=== PATIENT | male | born 1995 | race Caucasian/White ===

== ENCOUNTER → 2018-12-12 14:12 | Outpatient (CLI) | payer OTHER, SELFPAY ==
[2018-12-12 14:56] LABS: D-Dimer Quantitative (DVT/PE) 0.75 FEU/ug/m (0.27-0.49)
== END ==
PROVIDERS: Family Provider Family Medicine; PCP Family Medicine; Referring Provider Family Medicine; Visit Provider Family Medicine
DX: R06.02 Shortness of breath (principal); R07.9 Chest pain, unspecified
CPT/HCPCS: 85379

== ENCOUNTER 2018-12-12 14:50 | Inpatient (IN) | payer OTHER, SELFPAY ==
[2018-12-12] VITALS (19 sets, daily range): BP systolic 118–137; BP diastolic 61–84; PULSE 71–100; RESP 12–19; TEMP 36.7–37.6; O2SAT 98–100; BMI 23.2; BMI 22.6; BMI 22.7
--- NOTE | 2018-12-12 15:47 | CT_ITS ---
STUDY: CT ABDOMEN AND PELVIS WITH CONTRAST REASON FOR EXAM: Male, 23 years old. Weight loss RADIATION DOSAGE (If Supplied By Facility): DLP = ( 383.61 ) mGycm TECHNIQUE: Transaxial images were obtained from the dome of the diaphragm to the symphysis pubis without oral contrast. 100CC ml of Isovue 300 contrast was administered. Sagittal and coronal images were reconstructed. Individualized dose optimization techniques were used for this CT. COMPARISON: None. FINDINGS: The visualized lung bases are clear. The visualized portions of the heart and pericardium are within normal limits. There are no calcified gallstones present. The liver is within normal limits. There are no suspicious hepatic lesions. The spleen is normal in size. The pancreas is within normal limits. The adrenal glands are within normal limits. There are no obstructing renal stones. There is no hydronephrosis. There are no focal renal lesions. Normal visualized stomach. There is no bowel obstruction or inflammation. The appendix is not visualized, but there are no findings to suggest acute appendicitis. The aorta is normal in caliber. There is no abdominal or pelvic free air, free fluid, fluid collection or lymphadenopathy. There are no destructive osseous lesions. CT/Abdomen/Pelvis W IV Cont ONLY IMPRESSION: No acute abdominal or pelvic pathology. Electronically Signed: Bradford Cutler, at 17:29 EDT Tel , Service support ,
[2018-12-12] MEDS: 0.9% Normal Saline 1,000 ML 150 ML IV (16:07)
--- NOTE | 2018-12-12 16:12 | ED.DCSUM_ITS ---
- ER Visit Summary Date of Service: 12/12/18 Chief Complaint: Anemia History of Present Illness: The patient is a 23 M with fatigue for the past several months. He reportedly had a URI illness in August fully recovered. He developed diarrhea possibly 5 weeks ago. He states he is going once or twice a day. He does occasionally note blood in it. He reports minimal abdominal pain. Patient does have a history of irritable bowel/colitis. He was last scoped approximately year and a half ago. He was seen by his PCP today and his hemoglobin was measured at 5.4. Stool guaiac in the office is positive. Physical Examination: Vital signs unremarkable. Patient sitting upright in bed no acute distress. Heart is regular rate and rhythm. Lung sounds are clear. Abdomen is soft with no focal tenderness. Hypoactive bowel sounds are noted. Patient does appear pale. Test Results: CBC from the [facility] was reviewed and his hemoglobin is 5.4 with hematocrit 21.4. Platelet count is 237,000. Chemistry studies, LFTs, coags here are unremarkable. CT abdomen pelvis with IV contrast reveals no acute pathology. Emergency Department Course and Treatment: Patient did have positive stool guaiac at his PCPs office. He has been ordered 3 units of blood. I spoke with Dr. Mackey who will be following along with the patient in the hospital. Treatment Plan: [] Disposition: Admit Impression: 1. Anemia 2. GI bleed This note was generated with [employer] dictation software. It may contain incorrect words, spelling, and punctuation that were not noted in review of the chart prior to signing ED Disposition - Plan for ED Patient: Referrals: Von Stewart MD [Primary Care Provider] -
[2018-12-12 16:31] LABS: International Normalized Ratio 1.1; Prothrombin Time (Protime)PT. 13.8 SECONDS (11.7-14.9)
[2018-12-12 16:32] LABS: Partial Thromboplast Time 28.6 Seconds (24.1-36.2)
[2018-12-12 16:38] LABS: Anion Gap 4 (5-15); BUN 9 mg/dL (7-18); BUN/Creat Ratio 9.8 RATIO (10-20); Calcium,Total 8.9 mg/dL (8.5-10.1); Chloride 108 mmol/L (98-107); Creatinine, Serum 0.92 mg/dL (0.70-1.30); EST Glomerular Filtration Rate 107 mL/min (>60); Est Glom Filt Rate - Afr Amer 130 mL/min (>60); Estimated Creatinine Clearance 119.78 ml/min; Glucose 101 mg/dL (74-106); Potassium 3.8 mmol/L (3.5-5.1); Sodium Level 137 mmol/L (136-145)
[2018-12-12 16:46] LABS: AST(SGOT) 21 U/L (15-37); Alanine Aminotransfer ALT/SGPT 18 U/L (16-61); Alkaline Phosphatase 86 U/L (45-117); Bilirubin, Direct 0.11 mg/dL (0.00-0.30); Globulin 4.2 g/dL (2.2-4.2); Protein, Total 8.2 g/dL (6.4-8.2)
--- NOTE | 2018-12-12 18:07 | CASEMGMT ---
RN CM Assessment Introduced role of RN CM to patient and patient mother at bedside.? Patient is alert, oriented and able?to participate in RN CM Assessment. ?Care providers, pharmacy, and demographics verified. Presentation: Fatigue the past several months, Diarrhea x5 weeks 1-2times/day w/occasional blood. Sent from PCP Dr Stewart, +guaiac in office, Hgb 5.4. Admit Dx: Re-Admit: No Barriers/Issues: None PCP: Von Stewart Specialists: GI Preferred Pharmacy: [facility] Insurance: [employer] Rx Benefit: Yes? LNOK: Mother Malka Adams Living Arrangements:?Lives with mother in a 2 story home, patient resides on 2nd ms, 2 steps to enter home. ADL?s: Independent with ambulation and ADL's Transportation: Mother Malka Adams DME: None HHC: None SNF: None Goal: Home, does not anticipate will need anything. Denies questions/concerns. DC PLAN: Home with no anticipated needs identified at this time. Adam Bill RNCM
--- NOTE | 2018-12-12 21:14 | HP.PCM_ITS ---
Problem List (1) Severe anemia Status: Acute (2) History of ulcerative colitis Status: Chronic History of Present Illness Date of Admission: 12/12/18 Chief Complaint: Severe anemia, history of ulcerative colitis The patient is a 23 year old [facility] after being sent in by his PCP due to abnormal labs which were drawn today indicating hemoglobin of 5.4 and positive Hemoccult stool.. Patient's MCV was low at 61. Patient states that he has seen intermittent blood in his stool, he denies seeing any large clots-he states he sees blood on his stool from time to time.. Patient's mother who is in the room with the patient at the time of my examination states that the patient had a colonoscope done approximately 2 years ago which showed ulcerative colitis. Patient initially was treated with enemas but on follow-up visit to the GI doctor, patient was not kept on any medication and he has not had a repeat blood count since 2 years ago and is not been on any medications for his ulcerative colitis in the last 2 years. Patient admits to having intermittent low pelvic abdominal pain. Patient's mother has a history of ulcerative colitis. Lab work was obtained in the emergency room, patient's INR was normal, patient's chemistry profile was unremarkable. Patient's CBC was not repeated. CT of the abdomen and pelvis with IV contrast revealed no acute pathology. Past Medical History Past Medical History (Chronic Problems): Chronic Problems History of ulcerative colitis (Chronic) Allergies milk Allergy (Verified 12/12/18 20:37) Food Allergy sweet potato Allergy (Verified 12/12/18 20:37) Rash amoxicillin Adverse Reaction (Verified 12/12/18 20:29) Other THRUSH Home Medications: Ambulatory Orders Medication Instructions Recorded Albuterol Sulfate [Ventolin Hfa] 2 puff INHALATION Q4H PRN PRN 12/12/18 Cetirizine HCl [Zyrtec] 10 mg PO DAILY 12/12/18 Fluticasone 0.05% [Flonase Nasal 1 spray NASAL BID PRN 12/12/18 [place]] Lansoprazole [Prevacid] 30 mg PO DAILY 12/12/18 Surgical History: no surgical history Psychiatric History: No pertinent psych hx Lives: With Family Smoking Status: Never smoker Tobacco Use: Non-smoker Alcohol: None Drugs: None - *Family History Maternal History Items: - - Ulcerative colitis Paternal History Items: Unknown Review of Systems Constitutional: Reports: Weakness, Fatigue. Denies: Anorexia, Chills, Fever, Night Sweats, Weight Change Eyes: Denies: Blurred vision, Cataracts, Conjunctivae Inflammation, Double vision, Drainage HEENT: Denies: Difficulty Swallowing, Dysphasia, Ear Pain, Eye Pain, Hearing Changes, Nasal bleeding, Nasal Congestion, Post Nasal Drip Cardiovascular: Denies: Chest Pain, Claudication, Chest Pressure, Chest Tightness, Edema, Heaviness, Orthopnea, Palpitations Respiratory: Denies: Cough, Hemoptysis, Pleuritic Pain, Shortness of Breath, Shortness of breath at rest, Shortness of breath upon exertion Gastrointestinal: Reports: Abdominal Pain - Bilateral lower quadrant abdominal pain from time to time, Dyspepsia, Hematochezia. Denies: Constipation, Laurita rrhea, Hematemesis, Nausea, Melena, Vomiting Genitourinary: Denies: Dysuria, Frequency, Hematuria, Hesitancy, Incontinence, Nocturia, Urgency Musculoskeletal: Denies: Back Pain, Foot Pain, Hand Pain, Joint Pain, Joint stiffness, Joint swelling, Joint Tenderness, Leg Pain Skin: Denies: Dryness, Jaundice, Pruritis, Rash Neurological: Denies: Balance problems, Blurred vision, Double vision, Slurred speech, Difficulty swallowing, Focal weakness, Headaches, Incoordination, Numbness, Tingling Psychiatric: Denies: Anxiety, Depression, Homicidal Ideations, Suicidal Ideations Endocrine: Denies: Change in Body Habitus, Heat/ Cold Intolerance, Polydipsia, Polyuria Hematologic/ Lymphatic: Reports: Anemia - Patient has been anemic in the past, it is unknown what his last hemoglobin result was. Denies: Adenopathy, Easy Bruising, Easy Bleeding, Petechiae, Purpura VTE Information - Inpt Only VTE Present on Admission: No VTE Mechan Device Prophylaxis: None VTE Pharm Prophylaxis ordered?: No Reason prophylaxis not ordered:: Treatment Not Indicated Patient Problems: Active and Suspected Problems Severe anemia (Acute) - Physical Exam General: Alert, Oriented x3, Cooperative, No apparent distress, Well developed, Well nourished HEENT: Atraumatic, PERRLA, EOMI, Normocephalic Oral: Moist Mucosa Neck: Supple, No JVD, Negative Carotid Bruits, No Nuchal Rigidity, Trachea Midline, Thyroid Normal Size and Texture Lungs: Clear to auscultation, Normal air movement, No rhonchi, No wheeze, No rales Cardiovascular: Regular rate, Regular Rhythm, Normal S1, Normal S2, No murmurs, No Ectopic Activity, PMI Normal, No rub noted, No Gallop Abdomen: Bowel Sounds Present, Soft, Non Tender, Non-Distended, No hernias noted Extremities: No clubbing, No cyanosis, No edema, Capillary Refill Less than 3 Seconds Skin: No rashes, No breakdown Musculoskeletal: No Tenderness to Palpation of Joints or Extremities, No Muscle Wasting Neurological: Cranial nerves II-XII grossly intact, Neuro grossly intact, Sen mary exam intact to light touch and pain, Coordination normal Psych/Mental Status: Normal Affect, Appropriate, Alert and oriented to time, place, person, mood and affect Vital Signs Temp Pulse Resp BP Pulse Ox 99.5 F H 75 18 125/74 H 100 12/12/18 20:55 12/12/18 20:55 12/12/18 20:55 12/12/18 20:55 12/12/18 20:55 Oxygen Delivery Method Room Air Weight: 67.7 kg Body Mass Index (BMI) 22.6 Intake and Output for Last 24 Hours 12/10/18 12/11/18 12/12/18 23:59 23:59 23:59 Intake Total 400 / 400 Balance 400 / 400 Laboratory Tests Past 24 Hrs 12/12/18 12/12/18 12/12/18 15:34 15:35 15:35 PT 13.8 INR 1.1 APTT 28.6 Sodium Potassium Chloride Carbon Dioxide Anion Gap BUN Creatinine Estim Creat Clear Calc Est GFR (MDRD) Af Amer Est GFR (MDRD) Non-Af BUN/Creatinine Ratio Glucose Calcium Iron TIBC Iron Saturation Total Bilirubin 0.30 Direct Bilirubin 0.11 AST 21 ALT 18 Alkaline Phosphatase 86 Total Protein 8.2 Albumin 4.0 Globulin 4.2 Blood Type O NEGATIVE Antibody Screen NEGATIVE Crossmatch See Detail 12/12/18 12/12/18 15:35 15:35 PT INR APTT Sodium 137 Potassium 3.8 Chloride 108 H Carbon Dioxide 25.0 Anion Gap 4 L BUN 9 Creatinine 0.92 Estim Creat Clear Calc 119.78 Est GFR (MDRD) Af Amer 130 Est GFR (MDRD) Non-Af 107 BUN/Creatinine Ratio 9.8 L Glucose 101 Calcium 8.9 Iron Pending TIBC Pending Iron Saturation Pending Total Bilirubin Direct Bilirubin AST ALT Alkaline Phosphatase Total Protein Albumin Globulin Blood Type Antibody Screen Crossmatch Assessment/Plan All Active Problems Severe anemia (Acute) #1 severe anemia-microcytic in nature-probably iron deficiency from chronic GI bleeding-patient will be admitted to PCU, he will have a total of 4 units of packed red blood cells given, I wrote for IV Venofer tonight #2 past history of ulcerative colitis with Hemoccult positive stools-I feel the patient probably has chronic ulcerative colitis, I will start the patient on mesalamine and IV Solu-Medrol, general surgery has been consulted to see the patient, colonoscopy will be performed on Wednesday of this week. #3 chronic dyspepsia-patient is on PPIs chronically Code Visit Inpatient E&M: 04508 Init Hosp L3
[2018-12-12 21:48] LABS: Iron 11 ug/dL (65-175); Iron Binding Capacity,Total 514 ug/dL (250-450); PERCENT IRON SATURATION 2.1 % (15.0-55.0)
[2018-12-12] MEDS: Pantoprazole Sodium 40 MG Tablet PO (22:19)
[2018-12-12] MEDS: MESALAMINE 400 MG CAPSULE.DR 800 MG PO (22:20)
[2018-12-12] MEDS: MethylPREDNISolone 125 MG/2 ML Vial 60 MG IV (22:21)
[2018-12-13] VITALS (17 sets, daily range): BP systolic 118–131; BP diastolic 62–77; PULSE 55–90; RESP 16–18; TEMP 36.8–37.1; O2SAT 98–100; BMI 22.6
[2018-12-13] MEDS: Acetaminophen 325 MG Tablet 650 MG PO (04:48)
[2018-12-13] MEDS: MethylPREDNISolone 125 MG/2 ML Vial 60 MG IV ×3 (05:14→21:39)
[2018-12-13] MEDS: MESALAMINE 400 MG CAPSULE.DR 800 MG PO ×3 (05:14→21:39)
[2018-12-13] MEDS: 0.9% Normal Saline 1,000 ML 75 ML IV ×2 (05:14→18:25)
[2018-12-13 06:48] LABS: Absolute Lymphocyte Count 0.72 X10^3/ul (0.83-4.51); Basophil# 0.02 X10^3/uL; Basophil% 0.2 % (0-1); Hematocrit 32.7 % (40-54); Hemoglobin 9.7 g/dl (13.0-16.5); Lymphocyte # 0.72 X10^3/ul (4.0); Lymphocyte % 7.3 % (19-41); Mean Corp Hgb Conc 29.7 g/gl (32-36); Mean Corpuscular Hgb 20.2 pg (27.0-32.0); Mean Platelet Vol. 9.5 fl (6.2-12.0); Monocyte# 0.05 X10^3/uL; Monocyte% 0.5 % (0-10); Neutrophil # 8.97 X10^3/uL (2.7-7.7); Neutrophil % 90.6 % (47-70); Platelet Count 184 K/mm3 (150-450); RBC Distribution Width CV 26.1 % (11.6-14.6); RBC Distribution Width SD 60.3 fl (35.1-43.9); Red Blood Count 4.81 M/mm3 (4.6-6.2); White Blood Count 9.9 K/mm3 (4.4-11.0)
[2018-12-13 06:50] LABS: Differential Indicated SCAN CRITERIA MET; POSITIVE COUNT NO; POSITIVE DIFFERENTIAL NO; POSITIVE MORPHOLOGY YES
[2018-12-13 07:06] LABS: Anisocytosis 2+; Differential Comment SCAN; Hypochromasia 1+; Microcytosis 1+; Polychromasia 1+
[2018-12-13 07:21] LABS: Anion Gap 11 (5-15); BUN 10 mg/dL (7-18); BUN/Creat Ratio 11.1 RATIO (10-20); Calcium,Total 9.5 mg/dL (8.5-10.1); Chloride 108 mmol/L (98-107); EST Glomerular Filtration Rate 109 mL/min (>60); Est Glom Filt Rate - Afr Amer 132 mL/min (>60); Estimated Creatinine Clearance 121.19 ml/min; Glucose 112 mg/dL (74-106); Potassium 4.2 mmol/L (3.5-5.1); Sodium Level 140 mmol/L (136-145)
[2018-12-13] MEDS: Pantoprazole Sodium 40 MG Tablet PO ×2 (08:54→21:39)
--- NOTE | 2018-12-13 11:10 | PCM.CONS.B ---
- Consult Date of Consult: 12/13/18 - Reason for Consult Chief complaint: anemia, diarrhea, blood in stools ? ? HPI: Presents with diarrhea and blood in stools. Noted to have low hemoglobin. Has lost 14 labs since August. States that he has had intermittent bowel problems since July 2018. Colonoscopy 2017 1. Ascending colon and proximal transverse colon, biopsies (A-B) - Colonic mucosa with no diagnostic abnormality. 2. Colon, biopsy at 40 cm (C) - Chronic colitis with focal activity (see comment). 3. Colon, biopsy at 30 cm (D) - Mild chronic active colitis (see comment). 4. Colon, biopsy at 20 cm (E) - Colonic mucosa with no diagnostic abnormality. 5. Rectum, biopsy (F) - Mild chronic active colitis (see comment). COMMENT 2, 3 ,5. The principal differential diagnosis includes infection, ischemia, medication-related injury (e.g., NSAIDs), and idiopathic inflammatory bowel disease. Correlation with clinical and endoscopic findings is recommended. No granulomas are seen. There is no evidence of dysplasia or malignancy. PAST?MEDICAL?HISTORY ? Asthma ? ? Colitis ? ? PMH - PAST MEDICAL HISTORY OF ? ? Color Vision - Normal ? Seasonal allergies ? ? PAST?SURGICAL?HISTORY ? COLONOSCOP W/ OR W/O [facility] SPEC N/A 09/23/2016 ? MAC ? MEDICATIONS: albuterol HFA (VENTOLIN HFA) 90 mcg/actuation inhaler Inhale 2 Puffs as instructed every 4 hours as needed. Erythromycin-Benzoyl Peroxide gel Apply 1 application to affected area twice daily. cetirizine (ZYRTEC) 10 mg tablet Take 1 tablet by mouth once daily. SUMAtriptan (IMITREX) 100 mg tablet Take 1 tablet by mouth as needed. fluticasone (FLONASE) 50 mcg/actuation nasal spray Use 1 Colo in each nostril once daily. benzonatate (TESSALON PERLES) 100 mg capsule Take 1 capsule by mouth three times daily as needed. guaiFENesin (MUCINEX) 600 mg 12 hr tablet Take 2 tablets by mouth twice daily. Erloxrseeikblmj-Ddohdhwqs-ZB (BROMFED DM) 2-30-10 mg/5 mL syrup Take 5-10 ml po q6h prn (Patient not taking: Reported on 09/06/2018 ? ALLERGIES: ? Amoxicillin Hives ? Milk Hives ? Sweet Potato Hives FAMILY?HISTORY ? other (type II diabetes) Maternal Grandmother ? ? Diabetes Maternal Grandfather ? ? other (Lupus) Maternal Grandfather? MGGMo ? SOCIAL?HISTORY Socioeconomic History Marital status: Single Smoking status: Passive Smoke Exposure - Never Smoker Smokeless tobacco: Never Used Tobacco comment: Mom smokes ? ?? REVIEW OF SYSTEMS All other reviewed and negative other than HPI. ? ?? PHYSICAL EXAMINATION: General appearance: Well appearing, alert, in no acute distress, well-hydrated, well nourished. Skin: very pale. Head: Normocephalic, no masses, lesions, tenderness or abnormalities Lungs: lungs clear to auscultation. No wheezing, rhonchi, rales Heart: RRR without murmur, gallop, or rubs. No ectopy Abdomen: Normal abdominal exam, Abdomen soft, non-tender. Bowel sounds normal. No masses, organomegaly Extremities: No deformities, edema, skin discoloration, clubbing or cyanosis. Good capillary refill. Musculoskeletal: No joint swelling, deformity, or tenderness Rectal shows stool highly positive for blood ?? IMPRESSION: colitis anemia ASSESSMENT/PLAN: I have discussed the above with the patient. I have offered the patient the procedure of colonoscopy, possible biopsies. I have explained the procedure to the patient. I have counseled the patient as to the risks of the procedure, including but not limited to: infection, bleeding, injury to any intraabdominal organs such as liver/spleen, perforation of the GI tract, inability to complete the procedure, complications of anesthesia, etc. the patient understands. He wishes to proceed. I have given the patient the opportunity to ask questions and all questions were answered. He has no further questions. Plan colonoscopy on Wednesday ?
--- NOTE | 2018-12-13 11:14 | PCM.PROGNOTE ---
<Rc Barry - Last Filed: 12/13/18 11:14> Patient Problems: Active and Suspected Problems Severe anemia (Acute) Subjective: Pt with no lightheadedness today. Still fatigued, but states he feels much better than before. No further blood in stool today - formed brown stool this AM. No abdominal pain. No N/V. Agreeable to sigmoidoscopy. He thinks food triggered this episode pointing out he ate spicy food, a lot of tomato sauce, and chili. - Physical Exam General: Alert, Oriented x3, Cooperative HEENT: Atraumatic, PERRLA, EOMI, Normocephalic Neck: Supple, No JVD, Negative Carotid Bruits Lungs: Clear to auscultation, Normal air movement Cardiovascular: Regular rate, No murmurs Abdomen: Bowel Sounds Present, Soft, Non Tender Extremities: No edema, Capillary Refill Less than 3 Seconds Skin: No rashes, No breakdown Musculoskeletal: No Tenderness to Palpation of Joints or Extremities Neurological: Cranial nerves II-XII grossly intact Psych/Mental Status: Normal Affect, Appropriate, Alert and oriented to time, place, person, mood and affect Vital Signs Temp Pulse Resp BP Pulse Ox 98.5 F 59 L 18 129/76 H 98 12/13/18 05:10 12/13/18 07:04 12/13/18 05:10 12/13/18 05:10 12/13/18 05:10 Oxygen Delivery Method Room Air Weight: 149 lb 4.047 oz Body Mass Index (BMI) 22.6 Intake and Output for Last 24 Hours 12/11/18 12/12/18 12/13/18 23:59 23:59 23:59 Intake Total 800 / 800 2474 / 2474 Balance 800 / 800 2474 / 2474 Laboratory Tests Past 24 Hrs 12/12/18 12/12/18 12/12/18 15:34 15:34 15:35 WBC RBC Hgb Hct MCV MCH MCHC RDW RDW Differential Plt Count MPV Immature Gran % (Auto) Neut % (Auto) Lymph % (Auto) [place] % (Auto) Eos % (Auto) Baso % (Auto) Absolute Neuts (auto) Absolute Lymphs (auto) Total Counted Differential Comment Polychromasia Hypochromasia Anisocytosis Microcytosis PT INR APTT Sodium Potassium Chloride Carbon Dioxide Anion Gap BUN Creatinine Estim Creat Clear Calc Est GFR (MDRD) Af Amer Est GFR (MDRD) Non-Af BUN/Creatinine Ratio Glucose Calcium Iron TIBC Iron Saturation Total Bilirubin 0.30 Direct Bilirubin 0.11 AST 21 ALT 18 Alkaline Phosphatase 86 Total Protein 8.2 Albumin 4.0 Globulin 4.2 Blood Type O NEGATIVE Antibody Screen NEGATIVE Crossmatch See Detail See Detail 12/12/18 12/12/18 12/12/18 15:35 15:35 15:35 WBC RBC Hgb Hct MCV MCH MCHC RDW RDW Differential Plt Count MPV Immature Gran % (Auto) Neut % (Auto) Lymph % (Auto) [place] % (Auto) Eos % (Auto) Baso % (Auto) Absolute Neuts (auto) Absolute Lymphs (auto) Total Counted Differential Comment Polychromasia Hypochromasia Anisocytosis Microcytosis PT 13.8 INR 1.1 APTT 28.6 Sodium 137 Potassium 3.8 Chloride 108 H Carbon Dioxide 25.0 Anion Gap 4 L BUN 9 Creatinine 0.92 Estim Creat Clear Calc 119.78 Est GFR (MDRD) Af Amer 130 Est GFR (MDRD) Non-Af 107 BUN/Creatinine Ratio 9.8 L Glucose 101 Calcium 8.9 Iron 11 L TIBC 514 H Iron Saturation 2.1 L Total Bilirubin Direct Bilirubin AST ALT Alkaline Phosphatase Total Protein Albumin Globulin Blood Type Antibody Screen Crossmatch 12/13/18 12/13/18 06:00 06:00 WBC 9.9 RBC 4.81 Hgb 9.7 L Hct 32.7 L MCV 68.0 L MCH 20.2 L MCHC 29.7 L RDW 26.1 H RDW Differential 60.3 H Plt Count 184 MPV 9.5 Immature Gran % (Auto) 1.400 H Neut % (Auto) 90.6 H Lymph % (Auto) 7.3 L [place] % (Auto) 0.5 Eos % (Auto) 0.0 Baso % (Auto) 0.2 Absolute Neuts (auto) 9.0 H Absolute Lymphs (auto) 0.72 L Total Counted Not Reportable Differential Comment SCAN Polychromasia 1+ Hypochromasia 1+ Anisocytosis 2+ Microcytosis 1+ PT INR APTT Sodium 140 Potassium 4.2 Chloride 108 H Carbon Dioxide 21.0 Anion Gap 11 BUN 10 Creatinine 0.90 Estim Creat Clear Calc 121.19 Est GFR (MDRD) Af Amer 132 Est GFR (MDRD) Non-Af 109 BUN/Creatinine Ratio 11.1 Glucose 112 H Calcium 9.5 Iron TIBC Iron Saturation Total Bilirubin Direct Bilirubin AST ALT Alkaline Phosphatase Total Protein Albumin Globulin Blood Type Antibody Screen Crossmatch Medical Necessity - Tobacco Use Smoking Status: Never smoker Tobacco Use: Non-smoker Assessment/Plan All Active Problems Severe anemia (Acute) 1. Acute blood loss anemia 2/2 GI bleed presumed lower - ulcerative Colitis. Hgb stable s/p [address] aMckey following, lower endoscopy tomorrow. Discussed avoidance of triggers. Low Iron/Sat. Elevated binding capacity. Provide venofer x3. Continue IV protonix BID, IV solumedrol. CT abdomen negative for acute process. DVT ppx: early ambulation DC planning : pending results of endoscopy This patient was seen by Rc Barry PA-C under the supervision of Dr. Kumari. <Buddy Kumari - Last Filed: 12/13/18 15:25> Subjective: Patient is a history of colonoscopy diagnosed ulcerative colitis in 2017 and is not taking any medications for ulcerative colitis. She did admitted with severe anemia, hemoglobin 5.4 diagnosed patient with positive Hemoccult blood. Patient has bright red blood increase in the last 3 days before admission but none today. - Physical Exam General: Alert, Oriented x3, Cooperative HEENT: Atraumatic, PERRLA, EOMI, Normocephalic Neck: Supple, No JVD, Negative Carotid Bruits Lungs: Clear to auscultation, Normal air movement Cardiovascular: Regular rate, Regular Rhythm, Normal S1, No murmurs Abdomen: Bowel Sounds Present, Soft, Non Tender, Non-Distended Extremities: No edema, Capillary Refill Less than 3 Seconds Skin: No rashes, No breakdown Musculoskeletal: No Tenderness to Palpation of Joints or Extremities Lymphatic: No Cervical, Supraclavicular, or Inguinal Adenopathy Neurological: Cranial nerves II-XII grossly intact, Deep Tendon Reflexes 2+/4 and Symmetrical, Neuro grossly intact, Motor Exam 5/5 strength throughout Psych/Mental Status: Normal Affect, Appropriate Vital Signs Temp Pulse Resp BP Pulse Ox 98.3 F 67 16 118/62 100 12/13/18 11:10 12/13/18 11:10 12/13/18 11:10 12/13/18 11:10 12/13/18 11:10 Oxygen Delivery Method Room Air Weight: 149 lb 4.047 oz Body Mass Index (BMI) 22.6 Intake and Output for Last 24 Hours 12/11/18 12/12/18 12/13/18 23:59 23:59 23:59 Intake Total 800 / 800 3164 / 3164 Balance 800 / 800 3164 / 3164 Laboratory Tests Past 24 Hrs 12/12/18 12/12/18 12/12/18 15:34 15:34 15:35 WBC RBC Hgb Hct MCV MCH MCHC RDW RDW Differential Plt Count MPV Immature Gran % (Auto) Neut % (Auto) Lymph % (Auto) [place] % (Auto) Eos % (Auto) Baso % (Auto) Absolute Neuts (auto) Absolute Lymphs (auto) Total Counted Differential Comment Polychromasia Hypochromasia Anisocytosis Microcytosis PT INR APTT Sodium Potassium Chloride Carbon Dioxide Anion Gap BUN Creatinine Estim Creat Clear Calc Est GFR (MDRD) Af Amer Est GFR (MDRD) Non-Af BUN/Creatinine Ratio Glucose Calcium Iron TIBC Iron Saturation Total Bilirubin 0.30 Direct Bilirubin 0.11 AST 21 ALT 18 Alkaline Phosphatase 86 Total Protein 8.2 Albumin 4.0 Globulin 4.2 Blood Type O NEGATIVE Antibody Screen NEGATIVE Crossmatch See Detail See Detail 12/12/18 12/12/18 12/12/18 15:35 15:35 15:35 WBC RBC Hgb Hct MCV MCH MCHC RDW RDW Differential Plt Count MPV Immature Gran % (Auto) Neut % (Auto) Lymph % (Auto) [place] % (Auto) Eos % (Auto) Baso % (Auto) Absolute Neuts (auto) Absolute Lymphs (auto) Total Counted Differential Comment Polychromasia Hypochromasia Anisocytosis Microcytosis PT 13.8 INR 1.1 APTT 28.6 Sodium 137 Potassium 3.8 Chloride 108 H Carbon Dioxide 25.0 Anion Gap 4 L BUN 9 Creatinine 0.92 Estim Creat Clear Calc 119.78 Est GFR (MDRD) Af Amer 130 Est GFR (MDRD) Non-Af 107 BUN/Creatinine Ratio 9.8 L Glucose 101 Calcium 8.9 Iron 11 L TIBC 514 H Iron Saturation 2.1 L Total Bilirubin Direct Bilirubin AST ALT Alkaline Phosphatase Total Protein Albumin Globulin Blood Type Antibody Screen Crossmatch 12/13/18 12/13/18 06:00 06:00 WBC 9.9 RBC 4.81 Hgb 9.7 L Hct 32.7 L MCV 68.0 L MCH 20.2 L MCHC 29.7 L RDW 26.1 H RDW Differential 60.3 H Plt Count 184 MPV 9.5 Immature Gran % (Auto) 1.400 H Neut % (Auto) 90.6 H Lymph % (Auto) 7.3 L [place] % (Auto) 0.5 Eos % (Auto) 0.0 Baso % (Auto) 0.2 Absolute Neuts (auto) 9.0 H Absolute Lymphs (auto) 0.72 L Total Counted Not Reportable Differential Comment SCAN Polychromasia 1+ Hypochromasia 1+ Anisocytosis 2+ Microcytosis 1+ PT INR APTT Sodium 140 Potassium 4.2 Chloride 108 H Carbon Dioxide 21.0 Anion Gap 11 BUN 10 Creatinine 0.90 Estim Creat Clear Calc 121.19 Est GFR (MDRD) Af Amer 132 Est GFR (MDRD) Non-Af 109 BUN/Creatinine Ratio 11.1 Glucose 112 H Calcium 9.5 Iron TIBC Iron Saturation Total Bilirubin Direct Bilirubin AST ALT Alkaline Phosphatase Total Protein Albumin Globulin Blood Type Antibody Screen Crossmatch Assessment/Plan This patient was seen in conjunction with Rc SAN. I have independently interviewed and examined the patient and reviewed pertinent history, examination findings, laboratory and plan of management. I have reviewed the note and agree with the documented findings with the few additional points. In brief, patient is admitted for severe anemia secondary to acute lower GI blood loss consistent with hematochezia. Patient admitting hemoglobin was 5.4 and 4 units of PRBC transfusion. Repeat H&H 9.7/32.7. Patient also complained of abdominal cramps. CT abdomen does not show acute abdominal or pelvic pathology. Patient seen by Dr. Mackey. Colonoscopy done in 2017 shows mild chronic active colitis. There is no evidence of dysplasia or malignancy found on colonoscopy biopsies. Patient is scheduled for colonoscopy tomorrow a.m. I have discussed my assessment with Rc SAN and orders have been reviewed. Clinical Impression(s) from Imaging Studies Abdomen/Pelvis CT 12/12/18 15:47 IMPRESSION: No acute abdominal or pelvic pathology. Code Visit Inpatient E&M: 22379 Subs Hosp L2
[2018-12-13] MEDS: Electrolyte Solution/Peg's 4000 ML PO (13:28)
[2018-12-14] VITALS (10 sets, daily range): BP systolic 109–126; BP diastolic 55–67; PULSE 52–79; RESP 16–18; TEMP 36.7–37.2; O2SAT 94–100
[2018-12-14 06:11] LABS: Absolute Lymphocyte Count 0.72 X10^3/ul (0.83-4.51); Absolute Neutrophil Count 10.2 X10^3/uL (2.0-7.7); Basophil# 0.02 X10^3/uL; Basophil% 0.2 % (0-1); Hematocrit 29.1 % (40-54); Hemoglobin 8.5 g/dl (13.0-16.5); Lymphocyte # 0.72 X10^3/ul (4.0); Lymphocyte % 6.3 % (19-41); Mean Corp Hgb Conc 29.2 g/gl (32-36); Mean Corpuscular Hgb 20.3 pg (27.0-32.0); Mean Corpuscular Volume 69.6 fL (80-94); Mean Platelet Vol. 9.3 fl (6.2-12.0); Monocyte# 0.34 X10^3/uL; Neutrophil % 89.6 % (47-70); Platelet Count 153 K/mm3 (150-450); RBC Distribution Width CV 26.4 % (11.6-14.6); RBC Distribution Width SD 63.4 fl (35.1-43.9); Red Blood Count 4.18 M/mm3 (4.6-6.2); White Blood Count 11.4 K/mm3 (4.4-11.0)
[2018-12-14] MEDS: 0.9% Normal Saline 1,000 ML 75 ML IV (06:11)
[2018-12-14] MEDS: MethylPREDNISolone 125 MG/2 ML Vial 60 MG IV (06:11)
[2018-12-14] MEDS: MESALAMINE 400 MG CAPSULE.DR 800 MG PO (06:11)
[2018-12-14 06:12] LABS: POSITIVE COUNT NO; POSITIVE DIFFERENTIAL NO; POSITIVE MORPHOLOGY YES
[2018-12-14 06:13] LABS: Differential Indicated SCAN CRITERIA MET
[2018-12-14 06:35] LABS: Anisocytosis 2+; Differential Comment SCAN; Hypochromasia 1+; Microcytosis 1+; Platelet Estimate ADEQUATE (ADEQ); Platelet Morphology LARGE; Polychromasia 1+
--- NOTE | 2018-12-14 06:40 | NURSING ---
CALLED REPORT TO MEL ROSS IN ENDO AT THIS TIME.
--- NOTE | 2018-12-14 07:00 | COLBX_PTH ---
PATIENT: JANE RAMON LOC: PCU U#:[id number] AGE/SX: 23/M ROOM: [facility] RE12/12/[address]: Dr. Buddy Kumari MD : [id number] BED: 1 DIS: 12/14/2018 SPEC #: [id number] RECD: 12/14/18 09:41 STATUS: ISABELLA RESusy #: [id number] ELIZABETH: 12/14/18 07:[address]: Kimberly Mackey DEPT: SURGICAL PATHOLOGY RECD BY: Misael Garcia ENTERED: 12/14/18 10:57 SP TYPE: COLON BX OT DR: DO Dr. Buddy Miranda MD Dr. William Lago, MD Tissues: A - Transverse colon B - Left colon C - Sigmoid colon biopsy D - Rectum, NOS Procedures: Surgery Specimen Level IV HEADER OPERATION: Colonoscopy (MAC) PRE-OP DIAGNOSIS: Diarrhea TISSUE SUBMITTED: A - Right transverse colon biopsy, B - Left colon biopsy, C - Sigmoid colon biopsy, D - Rectum biopsy MICROSCOPIC DIAGNOSIS A. Right transverse colon, biopsy: Fragments of colonic mucosa, no pathologic diagnosis. B. Left colon, biopsy: Focal acute colitis. See microscopic description and comment. C. Sigmoid colon, biopsy: Moderate chronic active colitis. Negative for dysplasia. See microscopic description and comment. D. Rectal biopsy: Moderate to marked chronic active colitis. Negative for dysplasia. See microscopic description and comment. SJ:jeffrey 12/15/18 COMMENT The findings are consistent with inflammatory bowel disease (ulcerated colitis). Correlation with clinical, endoscopic findings and appropriate follow up are necessary. MICROSCOPIC DESCRIPTION Slides are reviewed. B. The specimen shows fragments of colonic mucosa with a few glands showing crypt abscesses. Significant cryptitis, glandular distortion or granuloma formation is not seen. C. The specimen shows fragments of colonic mucosa with glandular distortion, acute and chronic inflammatory cell infiltrate in the lamina propria and lymphoid aggregates. Significant cryptitis, crypt abscesses or granuloma formation are not seen. No evidence of dysplasia. D. The specimen shows fragments of colonic mucosa with moderate to marked acute and chronic inflammatory cell infiltrates in the lamina propria, granular distortion, lymphoid aggregates, cryptitis and crypt abscesses. Focal area of ulceration and granulation tissue reaction is also noted. Granuloma formation is not seen. No evidence of dysplasia. GROSS DESCRIPTION A - Received in fixative is one container labeled with the patient's name and designated right transverse colon biopsy. The specimen consists of multiple irregular fragments of light rojas soft tissue that in aggregate measure 2 x 0.5 x 0.1 cm. The specimen is totally submitted in one cassette. B - Received in fixative is one container labeled with the patient's name and designated left colon biopsy. The specimen consists of two irregular fragments of light rojas soft tissue that in aggregate measure 0.8 x 0.2 x 0.1 cm. The specimen is totally submitted in one cassette. C - Received in fixative is one container labeled with the patient's name and designated sigmoid colon biopsy. The specimen consists of multiple irregular fragments of light rojas soft tissue that in aggregate measure 1 x 0.3 x 0.1 cm. The specimen is totally submitted in one cassette. D - Received in fixative is one container labeled with the patient's name and designated rectal biopsy. The specimen consists of multiple irregular fragments of light rojas soft tissue that in aggregate measure 0.5 x 0.4 x 0.1 cm. The specimen is totally submitted in one cassette. / SJ:rg 12/14/18 TC:2 CPT: 87834 x4
--- NOTE | 2018-12-14 07:39 | OP.ENDO_ITS ---
12/14/2018 Von Stewart Re : Colonoscopy procedure for Jacoby Gee Dear Terry This procedure was performed on Friday, December 14, 2018. My impressions and recommendations are as follows: Impressions : - Diffuse mild inflammation was found in the sigmoid colon secondary to colitis. Biopsied. - Friability with contact bleeding in the rectum. Biopsied. - Non-bleeding internal hemorrhoids. Recommendations : - Repeat colonoscopy after studies are complete for surveillance based on pathology results. - Return to primary care physician PRN. - Continue present medications. My findings are described in the full procedure note, which is enclosed. If I can be of further assistance, please feel free to contact me at Doctor phone number(s): , Work: . Sincerely, MD Kimberly Saucedo MD 12/14/2018 7:39:16 AM This report has been signed electronically.
--- NOTE | 2018-12-14 07:39 | PCM.PN.BLA ---
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 Recommend treatment with Rowasa enemas. Recommend consultation with financial sales associate to test for food allergies. Patient can be discharged to home when medically stable.
--- NOTE | 2018-12-14 07:40 | PN_ITS ---
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 Recommend treatment with Rowasa enemas. Recommend consultation with log snaker to test for food allergies. Patient can be discharged to home when medically stable.
[2018-12-14] MEDS: Pantoprazole Sodium 40 MG Tablet PO ×2 (08:52→08:56)
[2018-12-14] MEDS: Ensure Clear 120 ML Liquid PO (08:56)
--- NOTE | 2018-12-14 10:47 | DCINST_ITS ---
- Discharge Diagnoses Current Active Problems: Current Active and Chronic Problems Severe anemia (Acute) History of ulcerative colitis (Chronic) You will use the following diet at home:: Other - Avoid spicy, greasy, and acidic foods Your food should be the consistency of: Regular Your liquids should be the consistency of: Regular/Thin Discharge Activity: Return to Normal Activity Allergies/Adverse Reactions: Allergies milk Allergy (Verified 12/12/18 20:37) Food Allergy sweet potato Allergy (Verified 12/12/18 20:37) Rash amoxicillin Adverse Reaction (Verified 12/12/18 20:29) Other THRUSH Medications to take at Discharge Albuterol Sulfate [Ventolin Hfa] 2 puff INHALATION Q4H PRN PRN 12/12/18 Cetirizine HCl [Zyrtec] 10 mg PO DAILY 12/12/18 Fluticasone 0.05% [Flonase Nasal [place]] 1 spray NASAL BID PRN 12/12/18 Lansoprazole [Prevacid] 30 mg PO DAILY 12/12/18 Mesalamine [Delzicol] 800 mg PO TID #180 capsule. 12/14/18 Prednisone 10 mg PO UD #30 tablet 12/14/18 The following prescriptions were given: Mesalamine [Delzicol] 800 mg PO TID #180 capsule. Prednisone 10 mg PO UD #30 tablet Primary Care Physician: Von Stewart MD [Primary Care Provider] - Please follow up with your Primary Care Physician in: 1-2 weeks Test Results: Test results from this visit will be discussed in further detail at your follow- up appointment, if applicable. Please Follow Up With: Kimberly Mackey MD When: 2 weeks Please Follow Up With: Haseeb Charles MD When: 1-2 weeks Proposed Discharge Date: 12/14/18
--- NOTE | 2018-12-14 13:25 | DS.PCM_ITS ---
<Rc Barry - Last Filed: 12/14/18 13:21> Discharge Date and Diagnosis Date of Admission: 12/12/18 Date of Discharge: 12/14/18 - Primary Discharge Diagnosis Ulcerative colitis with acute flair Acute blood loss anemia 2/2 above Iron deficiency - Secondary Discharge Diagnosis Chronic Problems History of ulcerative colitis (Chronic) Hospital Course and Treatment Imaging Results: CT/Abdomen/Pelvis W IV Cont ONLY IMPRESSION: No acute abdominal or pelvic pathology. Consults: Narendra - gen surg Operations: None Procedures: - - sigmoidoscopy Summary of Care Provided: Hospital Course: The patient is a 23 year old M with pmhx of ulcerative colitis who presented to the ER with lightheadness and weakness, and several days of intermittent rectal bleeding. His hgb was 5.4 at his PCPs office with hemoccult stool. MCV was 61. He was sent to the ER. CT abdomen negative. Gen surgery was consulted. He was admitted on tele and transfused with 4 units prbc. He was iron deficient and given venofer. He was given protonix and solumedrol. He had a colonoscopy in the past showing UC, and was subsequently treated with colicort enemas. Hgb and symptoms stabilized. He underwent a sigmoidoscopy which showed diffuse inflammation 2/2 colitis and friability with contact bleeding, non bleeding internal hemorrhoids. He was placed on mesalmine and a prednisone taper and will need enemas going home. He was also started on po iron at ok. He was advised to follow up with GI in 1-2 weeks, general surgery in 1-2 weeks, and his PCP in 1-2 weeks. I advised him to have his Hgb checked later this week with his PCP. He was discharged home in stable condition. This patient was seen by Rc Barry PA-C under the supervision of Dr. Kumari [] - Physical Exam General: Alert, Oriented x3, Cooperative HEENT: Atraumatic, PERRLA, EOMI, Normocephalic Neck: Supple, No JVD, Negative Carotid Bruits Lungs: Clear to auscultation, Normal air movement Cardiovascular: Regular rate, No murmurs Abdomen: Bowel Sounds Present, Soft, Non Tender Extremities: No edema, Capillary Refill Less than 3 Seconds Skin: No rashes, No breakdown Musculoskeletal: No Tenderness to Palpation of Joints or Extremities Neurological: Cranial nerves II-XII grossly intact Psych/Mental Status: Normal Affect, Appropriate, Alert and oriented to time, place, person, mood and affect Vital Signs Temp Pulse Resp BP Pulse Ox 98.1 F 63 18 116/61 98 12/14/18 08:14 12/14/18 11:18 12/14/18 08:14 12/14/18 08:14 12/14/18 08:14 Oxygen Delivery Method Room Air Weight: 149 lb 4.047 oz Body Mass Index (BMI) 22.6 Intake and Output for Last 24 Hours 12/12/18 12/13/18 12/14/18 23:59 23:59 23:59 Intake Total 800 / 800 3404 / 3404 5290 / 5290 Balance 800 / 800 3404 / 3404 5290 / 5290 Laboratory Tests Past 24 Hrs 12/14/18 05:15 WBC 11.4 H RBC 4.18 L Hgb 8.5 L Hct 29.1 L MCV 69.6 L MCH 20.3 L MCHC 29.2 L RDW 26.4 H RDW Differential 63.4 H Plt Count 153 MPV 9.3 Immature Gran % (Auto) 0.900 Neut % (Auto) 89.6 H Lymph % (Auto) 6.3 L Bladen % (Auto) 3.0 Eos % (Auto) 0.0 Baso % (Auto) 0.2 Absolute Neuts (auto) 10.2 H Absolute Lymphs (auto) 0.72 L Total Counted Not Reportable Differential Comment SCAN Platelet Estimate ADEQUATE Plt Morphology Comment LARGE Polychromasia 1+ Hypochromasia 1+ Anisocytosis 2+ Microcytosis 1+ Discharge Diet: - - avoid food triggers of UC Discharge Activity: Return to Normal Activity Home Medications: Medications to take at Discharge Albuterol Sulfate [Ventolin Hfa] 2 puff INHALATION Q4H PRN PRN 12/12/18 Cetirizine HCl [Zyrtec] 10 mg PO DAILY 12/12/18 Fluticasone 0.05% [Flonase Nasal Vivian] 1 spray NASAL BID PRN 12/12/18 Lansoprazole [Prevacid] 30 mg PO DAILY 12/12/18 Iron Polysaccharide Complex [Ferrex 150] 150 mg PO DAILY #30 capsule 12/14/18 Mesalamine [Delzicol] 800 mg PO TID #180 capsule. 12/14/18 Prednisone 10 mg PO UD #30 tablet 12/14/18 Following Prescrptions Were Given to Patient: Iron Polysaccharide Complex [Ferrex 150] 150 mg PO DAILY #30 capsule Mesalamine [Delzicol] 800 mg PO TID #180 capsule. Prednisone 10 mg PO UD #30 tablet Primary Care Physician: Von Stewart MD [Primary Care Provider] - Please follow up with your Primary Care Physician in: 1-2 weeks Please Follow Up With: Kimberly Mackey MD When: 2 weeks Please Follow Up With: Haseeb Charles MD When: 1-2 weeks Disposition: Home Minutes spent on discharge:: 35 Patient Condition:: Stable Medical Necessity - Tobacco Use Smoking Status: Never smoker Tobacco Use: Non-smoker Meaningful Use Info Meaningful Use Diagnoses (Choose all that apply): None applicable <Buddy Kumari - Last Filed: 12/14/18 14:13> Discharge Date and Diagnosis - Secondary Discharge Diagnosis Chronic Problems History of ulcerative colitis (Chronic) Hospital Course and Treatment Summary of Care Provided: This patient was seen in conjunction with Rc SAN. I have independently interviewed and examined the patient and reviewed pertinent history, examination findings, laboratory and plan of management. I have reviewed the note and agree with the documented findings with the few additional points. In brief, patient is admitted for severe anemia secondary to acute lower GI blood loss consistent with hematochezia. Patient admitting hemoglobin was 5.4 and 4 units of PRBC transfusion. Repeat H&H 9.7/32.7. Patient also complained of abdominal cramps. CT abdomen does not show acute abdominal or pelvic pathology. Patient seen by Dr. Mackey. Posttransfusion H&H showed mild drop from 9.7/32.7?8.5/29.1 mostly secondary to hemodilution. Patient did not had rectal bleed after admission. Colonoscopy done in 2017 shows mild chronic active colitis. There is no evidence of dysplasia or malignancy found on colonoscopy biopsies. 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 Diffuse mild inflammation found in sigmoid colon. Friable with contact bleeding in the rectum. Nonbleeding internal hemorrhoid. Recommended treatment with Rowasa enemas. Also recommended consultation with assistant basketball coach to test for food allergy. Discharge medication reconciliation done. Discharge follow-up instructions completed. Discharge process discussed with the patient and all questions were answered to patient's satisfaction. Follow-up with GI Dr. Charles and surgeon Dr. Mackey. Patient was also advised to follow-up with glass ribbon machine operator assistant for food allergy testing. Total time spent, exact 35 minutes on discharge meds reconciliation, examination, review of imaging and blood test and discussion with the patient on follow-up instructions. I have discussed my assessment with Rc SAN and orders have been reviewed. Clinical Impression(s) from Imaging Studies Abdomen/Pelvis CT 12/12/18 15:47 IMPRESSION: No acute abdominal or pelvic pathology. Subjective: Seen and examined. Overall patient had 4 units of PRBC transfusion and iron infusion. Posttransfusion H&H is stable. Hemodynamically stable. - Physical Exam General: Alert, Oriented x3, Cooperative HEENT: Atraumatic, PERRLA, EOMI, Normocephalic Neck: Supple, No JVD, Negative Carotid Bruits Lungs: Clear to auscultation, Normal air movement, No rhonchi, No wheeze, No rales Cardiovascular: Regular rate, Regular Rhythm, Normal S1, Normal S2, No murmurs Abdomen: Bowel Sounds Present, Soft, Non Tender, Non-Distended Extremities: No edema, Capillary Refill Less than 3 Seconds Skin: No rashes, No breakdown Musculoskeletal: No Tenderness to Palpation of Joints or Extremities Lymphatic: No Cervical, Supraclavicular, or Inguinal Adenopathy Neurological: Cranial nerves II-XII grossly intact, Deep Tendon Reflexes 2+/4 and Symmetrical, Neuro grossly intact Psych/Mental Status: Normal Affect, Appropriate Vital Signs Temp Pulse Resp BP Pulse Ox 98.1 F 63 18 116/61 98 12/14/18 08:14 12/14/18 11:18 12/14/18 08:14 12/14/18 08:14 12/14/18 08:14 Oxygen Delivery Method Room Air Weight: 149 lb 4.047 oz Body Mass Index (BMI) 22.6 Intake and Output for Last 24 Hours 12/12/18 12/13/18 12/14/18 23:59 23:59 23:59 Intake Total 800 / 800 3404 / 3404 5290 / 5290 Balance 800 / 800 3404 / 3404 5290 / 5290 Laboratory Tests Past 24 Hrs 12/14/18 05:15 WBC 11.4 H RBC 4.18 L Hgb 8.5 L Hct 29.1 L MCV 69.6 L MCH 20.3 L MCHC 29.2 L RDW 26.4 H RDW Differential 63.4 H Plt Count 153 MPV 9.3 Immature Gran % (Auto) 0.900 Neut % (Auto) 89.6 H Lymph % (Auto) 6.3 L Bladen % (Auto) 3.0 Eos % (Auto) 0.0 Baso % (Auto) 0.2 Absolute Neuts (auto) 10.2 H Absolute Lymphs (auto) 0.72 L Total Counted Not Reportable Differential Comment SCAN Platelet Estimate ADEQUATE Plt Morphology Comment LARGE Polychromasia 1+ Hypochromasia 1+ Anisocytosis 2+ Microcytosis 1+ Code Visit Inpatient E&M: 82408 Disch Hosp
[2018-12-14 23:51] LABS: Absolute Nucleated RBC Count 0.11 10^3/uL (0-5)
== END 2018-12-14 12:45 | disposition home or self-care (01) | DRG 386 ==
LOC: ED 19:20 → PCU 19:44
PROVIDERS: Family Medicine; Physician Assistant; Surgery; Admitting Provider Internal Medicine; Emergency Provider Emergency Medicine; Family Provider Family Medicine; PCP Family Medicine; Referring Provider Internal Medicine; Visit Provider Internal Medicine
PROC: 0DJD8ZZ Inspection of Lower Intestinal Tract, Via Natural or Artificial Opening Endoscopic (ICD-10-PCS; CPT 45378; principal; 2018-12-14 06:55)
DX: K51.90 Ulcerative colitis, unspecified, without complications (principal); D62 Acute posthemorrhagic anemia; K64.8 Other hemorrhoids
CPT/HCPCS: 36415; 74177; 80048; 80076; 83540; 83550; 85025; 85610; 85730; 86850; 86900; 86920; 86922; 88305; 99285; J1756; J7030; J7040; P9016; Q9967; A4216

== ENCOUNTER 2020-04-08 10:57 | Emergency (ER) | payer OTHER, MEDICAID, SELFPAY ==
[2018-12-13 22:43] VITALS: BMI 22.6
[2020-04-08] VITALS (11 sets, daily range): BP systolic 121–156; BP diastolic 65–86; PULSE 64–113; RESP 16; TEMP 36.1–37.1; O2SAT 98–100; BMI 20.7
--- NOTE | 2020-04-08 11:12 | ED.DCSUM_ITS ---
History of Present Illness Chief Complaint: Abn Labs Detail of Chief Complaint: Low hemoglobin Informant: Patient, Family Onset: Days Context: Gradual Onset Timing: Continuous Quality: Blood per rectum due to ulcerative colitis Location: Ulcerative colitis Current Severity: Moderate Maximum Severity: Moderate Worsened by: Poor compliance per Dr. Boy Mackey Relieved by: Patient felt better when he was taking 3 iron tablets a day. He decreased Narrative: Patient is a 24-year-old male with history of ulcerative colitis who was sent to the emergency department because of a hemoglobin of 5. Patient denies orthostatic symptoms. He denies dyspnea or dyspnea on exertion. He states he is had blood in his stool for over a month. He denies mucus. He states he is having 2 mushy bowel movements per day. He is scheduled for an outpatient colo noscopy by Dr. Kimberly Mackey on April 24. He denies fever, chills night sweats. He denies HEENT, cardiac or respiratory symptoms. He denies abdominal pain. He denies bruising easily. He has not taken any antiplatelet medicine recently. Prior similar symptoms: Yes Recent Illness/Hospitalization: No - Past Medical History (1) Severe anemia Status: Acute (2) History of ulcerative colitis Status: Chronic Past Medical History - Allergies and Home Meds Allergies/Adverse Reactions: Allergies milk Allergy (Verified 04/08/20 10:57) Food Allergy sweet potato Allergy (Verified 04/08/20 10:57) Rash amoxicillin Adverse Reaction (Verified 04/08/20 10:57) Other THRUSH Primary Care Physician: Von Stewart MD [Primary Care Provider] - Prior records reviewed: Yes Surgical History: no surgical history, - - Colonoscopy Lives: With Family Smoking Status: Never smoker Alcohol: None Drugs: None - Family History Maternal Family History: Reports: - - Ulcerative colitis Paternal Family History: Reports: Unknown Review of Systems General: Reports: Malaise. Denies: Chills, Fever, Subjective, Sweats, Weight loss, - Eyes: Denies: Visual changes - bilaterally, Blurred Vision - bilaterally ENT: Denies: Rhinorrhea, Sore throat Cardiovascular: Denies: Chest pain, Palpitations Respiratory: Denies: Dyspnea, Dyspnea on exertion Gastrointestinal: Reports: Diarrhea, Hematochezia. Denies: Abdominal pain, Nausea, Vomiting, Constipation, Melena Genitourinary: Denies: Dysuria, Hematuria Musculoskeletal: Denies: Myalgias, Arthralgias Skin: Denies: Rash, Wounds Neurological: Reports: Weakness. Denies: Headache Hematologic: Denies: Easy bruising, Easy bleeding Physical Exam Vital Signs/Narrative: Vital Signs Temp Pulse Resp BP Pulse Ox 04/08/20 11:00 97 F L 113 H 16 143/75 H 100 Inital Vital Signs reviewed: Yes General: Well nourished, Well developed, No Acute Distress Eyes: Perrl, EOMI, Pale conjunctiva. Negative for: Scleral icterus ENT: Moist mucous membranes, No rhinorrhea Neck: Supple, Nontender, No lymphadenopathy, No JVD Cardiovascular: Regular rhythm, No murmurs, Normal S1, Normal S2, Tachycardia Respiratory: No distress, CTA bilaterally, Chest nontender Abdomen: Soft, Nontender, Nondistended, Normal bowel sounds, No masses Back: Nontender, Normal Inspection Extremities: Nontender, No edema Skin: No rash, No Trauma, Pallor. Negative for: Cyanosis, Diaphoresis, Jaundice Neurological: Alert, Oriented x3, Cranial nerves II-XII grossly intact, Normal Strength, Normal Sensation Psychological: Normal affect, Normal Mood Diagnostic/Tx/Re-eval Laboratory Results 04/08/20 04/08/20 04/08/20 11:30 11:30 11:30 WBC 5.0 RBC 3.64 L Hgb 5.6 L* Hct 23.2 L MCV 63.7 L MCH 15.4 L MCHC 24.1 L RDW Std Deviation 40.9 RDW Coeff of Monica 18.1 H Plt Count 365 MPV 9.0 Differential Comment SCANNED Diff Path Review May foll Sodium 138 Potassium 3.4 L Chloride 106 Carbon Dioxide 28.0 Anion Gap 4 L BUN 6 L Creatinine 0.91 Estim Creat Clear Calc 108.28 Est GFR (MDRD) Af Amer 130 Est GFR (MDRD) Non-Af 107 BUN/Creatinine Ratio 6.6 L Glucose 116 H Calcium 8.4 L Crossmatch See Detail BUN to creatinine ratio was normal. This would indicate this is chronic blood loss consistent with patient reporting blood in his stool for greater than a month. He will receive 2 units of blood. Plan is to discharge to home and follow-up with Dr. Kimberly Mackey for scheduled outpatient colonoscopy. - Medical Decision Making Presents with asymptomatic anemia due to lower GI bleed/ulcerative colitis. Patient has been typed and crossed for 2 units of blood. Baseline blood work was obtained. ED Disposition - Plan for ED Patient: Disposition: Home or Assisted Living Diagnosis: Lower GI bleed, Acute blood loss anemia, Ulcerative colitis Instructions: ED Bleed UGI Stable, ED Colitis Ulcerative Referrals: Von Stewart MD [Primary Care Provider] - Additional Instructions: 1. Keep scheduled appointment with Dr. Kimberly Mackey. 2. Take ferrous sulfate tablet 3 times a day for the next month. 3. If you develop constipation, take Metamucil.
[2020-04-08 11:22] LABS: Hematocrit 23.2 % (40-54); Mean Corp Hgb Conc 24.1 g/dL (32-36); Mean Corpuscular Hgb 15.4 pg (27.0-32.0); Mean Corpuscular Volume 63.7 fL (80-94); POSITIVE COUNT YES; Platelet Count 365 K/mm3 (150-450); RBC Distribution Width CV 18.1 % (11.6-14.6); RBC Distribution Width SD 40.9 fl (35.1-43.9); Red Blood Count 3.64 M/mm3 (4.6-6.2)
[2020-04-08 11:25] LABS: Hemoglobin 5.6 g/dL (13.0-16.5); Scan Indicated on CBC? Y/N YES- FLAGS NOTED
[2020-04-08 11:34] LABS: Anion Gap 4 (5-15); BUN 6 mg/dL (7-18); BUN/Creat Ratio 6.6 RATIO (10-20); Calcium,Total 8.4 mg/dL (8.5-10.1); Chloride 106 mmol/L (98-107); Creatinine, Serum 0.91 mg/dL (0.70-1.30); EST Glomerular Filtration Rate 107 mL/min (>60); Est Glom Filt Rate - Afr Amer 130 mL/min (>60); Estimated Creatinine Clearance 108.28 ml/min; Glucose 116 mg/dL (74-106); Potassium 3.4 mmol/L (3.5-5.1); Sodium Level 138 mmol/L (136-145)
[2020-04-08 11:49] LABS: Differential Comment SCANNED
--- NOTE | 2020-04-08 12:30 | ED.RN ---
waiting on type and screen for blood transfusion
[2020-04-09 14:02] LABS: Pathologist Review Reviewed
== END 2020-04-08 17:56 | disposition home or self-care (01) ==
PROVIDERS: Emergency Provider Emergency Medicine; PCP Family Medicine
DX: K51.911 Ulcerative colitis, unspecified with rectal bleeding (principal); D62 Acute posthemorrhagic anemia
CPT/HCPCS: 80048; 85027; 86850; 86900; 86901; 86920; 86922; 99283; J7040; P9016